=== PATIENT | female | born 1950 | race Caucasian/White ===

== ENCOUNTER → 2023-10-20 14:51 | Outpatient (REF) | payer BC, SELFPAY | LOC: HWRAD 14:51 | PROVIDERS: ATTENDING PHYSICIAN Obstetrics & Gynecology; FAMILY PHYSICIAN Family Medicine | DX: R68.81 Early satiety (principal) | CPT/HCPCS: 76830; 76856 ==

== ENCOUNTER → 2024-08-25 11:44 | Outpatient (REF) | payer BC, SELFPAY | LOC: WDC 11:44 | PROVIDERS: ATTENDING PHYSICIAN Obstetrics & Gynecology; FAMILY PHYSICIAN Family Medicine | DX: Z12.31 Encounter for screening mammogram for malignant neoplasm of breast (principal) | CPT/HCPCS: 77063; 77067 ==